=== PATIENT | female | born 1995 | race African-American/Black ===

== ENCOUNTER 2024-09-13 19:39 | Emergency (ER) | payer MEDICAID ==
[~2024-09-13] VITALS: Ht 170.2 cm; Wt 81.6 kg
[~2024-09-13 19:39] MED LIST: IRON; PREN1TAB33
[2024-09-13 19:46] VITALS: O2SAT 98
[2024-09-13] MEDS: DEXAMETHASONE 10 MG/ML VIAL PO ONE (21:00)
[2024-09-13] MEDS ORDERED: BENZ100C86 MT (21:34)
[2024-09-13 22:31] VITALS: BP 131/87; PULSE 78; RESP 20; TEMP 36.72516; O2SAT 100
== END 2024-09-13 22:34 | disposition home or self-care (01) ==
LOC: ER 19:39
DX: J06.9 Acute upper respiratory infection, unspecified (principal); B97.89 Other viral agents as the cause of diseases classified elsewhere; Z79.52 Long term (current) use of systemic steroids; Z98.890 Other specified postprocedural states
CPT/HCPCS: 99283; 71045; J1100

== ENCOUNTER 2025-08-18 17:00 | Emergency (ER) | payer MEDICAID ==
[~2025-08-18] VITALS: Ht 162.6 cm; Wt 75.0 kg
[~2025-08-18 17:00] MED LIST changes: +BENZ100C86 MT
[2025-08-18 17:05] VITALS: O2SAT 100
[2025-08-18 17:34] LABS: BASOPHILS % 1.2 % (0.0-2.0); EOSINOPHILS % 0.4 % (0.0-5.0); HEMATOCRIT. 36.2 % (36.0-48.0); HEMOGLOBIN. 12.4 g/dL (12.0-16.0); LYMPHOCYTES % 22.9 % (20.0-50.0); MEAN PLATELET VOLUME 8.9 fl (7.4-10.4); MONOCYTES % 8.1 % (2.0-8.0); NEUTROPHILS % 67.4 % (40.0-76.0); PLATELET 302 x1000/uL (130-400); RED BLOOD CELL COUNT 3.91 mill/uL (4.2-5.4); RED CELL DISTRIBUTION WIDTH 13.9 % (11.6-14.6)
[2025-08-18 17:35] VITALS: TEMP 36.8
[2025-08-18] MEDS: SODIUM CHLORIDE 0.9% 1,000 ML IV ONE (17:52)
[2025-08-18 18:03] LABS: CREATININE 0.6 mg/dL (0.6-1.0); UREA NITROGEN BLOOD < 5 mg/dL (9-23)
[2025-08-18 18:20] LABS: B-HCG QUANTITATIVE 10571 mIU/mL (<6)
[2025-08-18 18:37] LABS: PROTEIN TOTAL 7.2 g/dL (6.0-8.3); TROPONIN I HIGH SENSITIVITY < 4 ng/L (3.0-34)
[2025-08-18 18:38] LABS: ASPARTATE AMINOTRANSFERASE 16 IU/L (<34); BILIRUBIN DIRECT < 0.1 mg/dL (<=3.0); BILIRUBIN TOTAL 0.4 mg/dL (0.1-1.0)
[2025-08-18 19:35] VITALS: BP 98/63; PULSE 85; RESP 12; O2SAT 99
== END 2025-08-18 20:02 | disposition home or self-care (01) ==
LOC: ER 17:00
DX: O26.892 Other specified pregnancy related conditions, second trimester (principal); R55 Syncope and collapse; R06.02 Shortness of breath; Z79.899 Other long term (current) drug therapy; Z3A.23 23 weeks gestation of pregnancy
CPT/HCPCS: 99284; 96360; 70450; 96361; 80076; 80048; 82962; 84702; 83880; 85025; 85379; 84484; 36415; 93005; J7030